=== PATIENT | male | born 1990 | race Caucasian/White ===

== ENCOUNTER 2021-09-06 15:58 | Emergency (ER) | payer MEDICAID, SELFPAY ==
--- NOTE | ~2021-09-06 | XR_ITS ---
EXAMINATION: XR FINGER, LEFT CLINICAL INFORMATION: Dislocation versus avulsion fracture of the fifth digit. COMPARISON: None TECHNIQUE: Three views of the left small finger. FINDINGS: Nonspecific flexion of the DIP joint of the fifth digit. No definite portion fractures. There is surrounding soft tissue swelling. No evidence of unexpected radiopaque foreign bodies. XR/XR finger LT min 2V IMPRESSION: Nonspecific flexion of the DIP joint of the fifth digit which could potentially represent a mallet injury suggesting trauma to the extensor mechanism of the finger. However, no discrete avulsion fractures are identified, and therefore findings are nonspecific.
[2021-09-06 16:50] VITALS: BP 127/84; PULSE 75; RESP 16; TEMP 36.9; O2SAT 99; BMI 21.0
--- NOTE | 2021-09-06 18:00 | ED.EXTPRO ---
HPI - Extremity Problem General Chief complaint: Extremity Problem Stated complaint: dislocated left pinky Time Seen by Provider: 09/06/21 16:17 Source: patient Mode of arrival: ambulatory History of Present Illness HPI Narrative: 31-year-old male no significant past medical history presenting to the ED complaining of left 5th finger potential dislocation s/p quickly drying feet after shower [employer]. Reports mild pain to the DIP. Denies numbness, tingling, weakness MD Complaint: extremity pain Onset (ago): hour(s) Related Data Allergies Allergy/AdvReac Type Severity Reaction Status Date / Time No Known Allergies Allergy Unverified 03/04/20 16:34 Review of Systems Review of Systems: Constitutional: No Fever, No Chills ENT/Mouth: No Ear Pain, No Nasal Congestion, No sore throat, No Swallowing Difficulty Cardiovascular: No Chest Pain, No SOB Respiratory: No Cough, No Sputum Gastrointestinal: No Nausea, No Vomiting, No Diarrhea, No Abdominal pain Genitourinary: No Dysuria, No Urinary Frequency, No Flank Pain Musculoskeletal: + joint pain, No Myalgias, No Joint Swelling Skin: No Skin Lesions, No rash Neuro: No Weakness, No Numbness, No Paresthesias Yes all other systems are reviewed and are negative Neurologic: Denies Sensory deficit (Neuro) [facility] Past Medical History Attestation statement: The following information was validated with the patient. Social History Social History Advance Directives: No Advance Directives Information Provided: No Physical Exam Vital Signs: Vital Signs: Last Vital Signs Temp 98.4 F 09/06/21 16:50 Pulse 75 09/06/21 16:50 Resp 16 09/06/21 16:50 BP 127/84 09/06/21 16:50 Pulse Ox 99 09/06/21 16:50 BMI result Body Mass Index 21.0 Const: General: cooperative, healthy appearing and no acute distress Orientation/consciousness: patient oriented x3 Limitations: no limitations HEENT: Head: Yes normal to inspection Ears: hearing grossly normal bilaterally General nose exam: Normal external nose present Face and sinus: Yes normal facial exam Eyes: General: appearance normal, both eyes and all related structures EOM: EOMs intact bilaterally Neck: Neck: Yes normal visual inspection and Yes no meningeal signs Resp: Effort & Inspection: normal respiratory effort Auscultation: clear to auscultation bilaterally Cardio: Rate: regular rate Heart sounds: S1 normal heart sound present and S2 normal heart sound present Skin: Rashes: no rashes Wounds: no wounds Neuro: General: patient oriented x3, tone normal and no meningeal signs Sensory Exam: No Sensory deficit (Neuro) Extrem: Other: Left 5th digit DIP stuck in flexion, unable to extend. PIP/MCP FROM intact. Sensation intact to light touch. NV intact Course Course Course Narrative: XR finger LT min 2V IMPRESSION: Nonspecific flexion of the DIP joint of the fifth digit which could potentially represent a mallet injury suggesting trauma to the extensor mechanism of the finger. However, no discrete avulsion fractures are identified, and therefore findings are nonspecific. ? >> patient placed in hyperextension finger splint, recommended follow-up with Orthopedics. He verbalized understanding feel safe for discharge home MDM - Extremity (Nontraumatic) MDM Narrative Medical decision making narrative: 31-year-old male no significant past medical history presenting to the ED complaining of left 5th finger potential dislocation s/p quickly drying feet after shower [employer]. On exam vital signs stable, NAD/nontoxic appearing, physical exam as above. Concern for dislocation vs avulsion injury vs fracture Plan: X-ray Medical Records Attestation: I reviewed the patient's medical records. Lab Data Attestation: I reviewed the patient's lab results. Discharge Plan Discharge Clinical Impression: Mallet finger Patient Disposition: Home, Self-Care Instructions: Avulsion Fracture (ED) Additional Instructions: Your x-rays are suggestive of trauma to your extensor tendon. There are no fractures appreciated. You need to keep her finger in this hyper extension splint for the next 6-8 weeks. Please call Orthopedics for follow-up in 5-7 days. You may take off splint to shower however immediately put back on, and make sure you sleep in it Thank Tylenol and Motrin for pain Referrals: Faith Almeida MD [Physician] - 5 days
== END 2021-09-06 19:16 | disposition home or self-care (01) ==
PROVIDERS: Emergency Provider Internal Medicine
DX: M20.012 Mallet finger of left finger(s) (principal); M79.645 Pain in left finger(s)
CPT/HCPCS: 29130; 73140; 99283

== ENCOUNTER 2023-12-27 16:05 | Outpatient (REF) | payer OTHER, SELFPAY ==
--- NOTE | ~2023-12-27 | MR_ITS ---
EXAMINATION: MR LUMBAR SPINE WITHOUT CONTRAST CLINICAL INFORMATION: Back pain radiating into right leg COMPARISON: None TECHNIQUE: MRI of the lumbar spine was obtained using routine sequences without contrast. FINDINGS: Normal lumbar lordosis is preserved. No significant spondylolisthesis. Vertebral body heights are maintained. There is no suspicious osseous lesion. Disc desiccation at L4-L5 greater than L5-S1 with minimal disc height loss at these levels. Level by level detail as follows: L1-L2: No spinal canal or neural foraminal stenosis. L2-L3: Trace annular disc bulge and mild bilateral facet arthrosis with ligamentum flavum thickening. No spinal canal or neural foraminal stenosis. L3-L4: Minimal annular disc bulge and mild bilateral facet arthrosis with ligamentum flavum thickening. No spinal canal or neural foraminal stenosis. L4-L5: Annular disc bulge with broad-based paracentral disc protrusion eccentric to the right with associated annular fissure. Mild bilateral facet arthrosis and ligamentum flavum thickening. No spinal canal stenosis. Abutment along the traversing left L5 nerve root in the subarticular zone. Mild neural foraminal narrowing. L5-S1: Annular disc bulge with mild facet arthrosis. No spinal canal stenosis. Mild bilateral neural foraminal narrowing. The conus medullaris terminates at the level of L1. The distal spinal cord is normal in appearance. No epidural fluid collection, hematoma, or mass. No significant abnormalities of the paraspinal musculature. Limited evaluation of the intra-abdominal structures without significant abnormalities. The abdominal aorta is of normal contour and caliber. MR/MR lumbar spine wo con IMPRESSION: 1. At L4-L5, there is a broad-based paracentral disc protrusion eccentric to the right with associated annular fissure which abuts the traversing left L5 nerve root in the subarticular zone. Mild bilateral neural foraminal narrowing at this level. 2. At L5-S1, there is mild bilateral neural foraminal narrowing.
== END 2023-12-27 16:06 | disposition home or self-care (01) ==
LOC: HO.MRI 16:05
PROVIDERS: PCP Internal Medicine; Visit Provider Internal Medicine
DX: M54.50 Low back pain, unspecified (principal)
CPT/HCPCS: 72148